=== PATIENT | male | born 1955 | race Asian ===

== ENCOUNTER 2023-05-08 11:12 | Emergency (ER) | payer OTHER ==
[2023-05-08 11:17] VITALS: RESP 18; BMI 23.3
[2023-05-08] MEDS ORDERED: ACETAMINOPHEN INJECTION 100 ML IVPB ONE (11:57)
[2023-05-08] MEDS ORDERED: KETOROLAC TROMETHAMINE 15 MG/ML VIAL ONE (11:57)
[2023-05-08] MEDS: SODIUM CHLORIDE 1,000 ML IV ONE (12:06)
[2023-05-08] MEDS: ACETAMINOPHEN 1000 MG/100 ML BAG IVPB ONE (12:06)
[2023-05-08] MEDS: KETOROLAC TROMETHAMINE 30 MG/1 ML VIAL IVPUSH ONE (12:06)
[2023-05-08 12:08] LABS: BASO % 0.7 % (0-2.0); EOS % 0.5 % (0-4.5); HEMATOCRIT 40.2 % (35.4-49); HEMOGLOBIN 13.7 GM/dL (11.7-16.9); LYMPH % 9.8 % (8-40); MCH 31.6 pg (25.7-33.7); MEAN CELL VOLUME 92.9 fl (80-96); MONO % 3.4 % (3.8-10.2); NEUT % 85.6 % (42.8-82.8); PLATELET COUNT 248 10^3/uL (134-434); RBC 4.33 M/mm3 (4.00-5.60); RDW 13.3 % (11.9-15.9); WHITE BLOOD COUNT 12.9 K/mm3 (4.0-10.0)
[2023-05-08 12:33] LABS: POTASSIUM 4.6 mmol/L (3.5-5.1)
[2023-05-08 12:35] LABS: CALCIUM 9.2 mg/dL (8.5-10.1)
[2023-05-08 12:36] LABS: ALBUMIN 3.7 g/dl (3.4-5.0); BLOOD UREA NITROGEN 18.4 mg/dL (7-18)
[2023-05-08 12:40] LABS: BILIRUBIN,TOTAL 0.5 mg/dL (0.2-1); CREATININE 1.1 mg/dL (0.55-1.3)
[2023-05-08 12:41] LABS: TOT PROT 6.9 g/dl (6.4-8.2)
[2023-05-08 13:33] LABS: EPI CELLS 13 /uL (0-25.1); HYALINE CASTS 1 /uL (0-3.1); URINE APPEARANCE TURBID; URINE BACTERIA 9 /uL (0-1359); URINE BILIRUBIN NEGATIVE (NEGATIVE); URINE COLOR YELLOW; URINE GLUCOSE (UA) NEGATIVE (NEGATIVE); URINE KETONE NEGATIVE (NEGATIVE); URINE LEUK ESTERASE NEGATIVE (NEGATIVE); URINE NITRITE NEGATIVE (NEGATIVE); URINE PROTEIN TRACE (NEGATIVE); URINE RBC 1751 /uL (0-23.9); URINE UROBILINOGEN 0.2 mg/dL (0.2-1.0); URINE WBC 29 /uL (0-25.8)
[2023-05-08 17:13] VITALS: BP 125/78; PULSE 74; TEMP 97.7
== END 2023-05-08 18:30 | disposition home or self-care (01) ==
LOC: JER 11:12
PROC: 3E033NZ Introduction of Analgesics, Hypnotics, Sedatives into Peripheral Vein, Percutaneous Approach (ICD-10-PCS; principal; 2023-05-08)
PROC: 3E0333Z Introduction of Anti-inflammatory into Peripheral Vein, Percutaneous Approach (ICD-10-PCS; 2023-05-08)
PROC: 3E0337Z Introduction of Electrolytic and Water Balance Substance into Peripheral Vein, Percutaneous Approach (ICD-10-PCS; 2023-05-08)
DX: R10.31 Right lower quadrant pain (principal); H57.89 Other specified disorders of eye and adnexa
CPT/HCPCS: 36415; 74177-TC; 80053; 81003; 85025; 96361; 96374; 96375; 99285-25; J0131; Q9967